=== PATIENT | female | born 1995 | race Caucasian/White ===

== ENCOUNTER 2017-09-29 22:19 | Emergency (ER) | payer MEDICAID, OTHER ==
[~2017-09-29] VITALS: Ht 167.6 cm; Wt 60.0 kg
[~2017-09-29 22:19] MED LIST: NO MEDS
[2017-09-30 01:43] VITALS: BP 113/65
== END 2017-09-30 01:46 | disposition home or self-care (01) ==
LOC: EMS 22:29
DX: S43.401A Unspecified sprain of right shoulder joint, initial encounter (principal); F12.90 Cannabis use, unspecified, uncomplicated; X58.XXXA Exposure to other specified factors, initial encounter; Y93.89 Activity, other specified; Y92.89 Other specified places as the place of occurrence of the external cause; Y99.8 Other external cause status
CPT/HCPCS: 99284

== ENCOUNTER 2024-08-19 23:20 | Emergency (ER) | payer MEDICAID, OTHER ==
[~2024-08-19] VITALS: Ht 167.6 cm; Wt 68.2 kg
[2024-08-19 23:32] VITALS: BP 138/88; PULSE 67; RESP 18; TEMP 97.7; O2SAT 100
== END 2024-08-19 23:47 | disposition left against medical advice (07) ==
LOC: EMS 23:21
DX: R10.13 Epigastric pain (principal); Z53.21 Procedure and treatment not carried out due to patient leaving prior to being seen by health care provider